=== PATIENT | male | born 1980 | race Caucasian/White ===

== ENCOUNTER 2022-06-28 12:55 | Outpatient (CLI) | payer OTHER, SELFPAY | END 2022-06-28 12:56 | disposition home or self-care (01) | LOC: ANHAUDASC 12:56 | PROVIDERS: PCP Internal Medicine; Visit Provider Nurse Practitioner | DX: H91.90 Unspecified hearing loss, unspecified ear (principal) | CPT/HCPCS: 92557; 92567 ==